=== PATIENT | male | born 1980 | race Caucasian/White ===

== ENCOUNTER 2019-06-27 11:28 | Emergency (ER) | payer OTHER, SELFPAY ==
[2019-06-27 11:34] VITALS: BP 140/90; PULSE 88; RESP 16; TEMP 36.5; O2SAT 100
--- NOTE | 2019-06-27 11:57 | ED.GENADUL_ITS ---
Discharge Plan Disposition Patient Disposition: HOME Condition: Stable Discharge Details Chief Complaint: FlankPain Clinical Impression: Right ureteral stone, Cholelithiasis Primary Care Provider: Jeny Nicole ED Provider: Perico Flores Home Meds and New Rx's Prescriptions: New oxycodone 5 mg tablet 5 mg PO Q6H PRN (Reason: pain) Qty: 4 RF: 0 tamsulosin [Flomax] 0.4 mg capsule 0.4 mg PO QHS Qty: 14 RF: 0 Continued sumatriptan succinate 100 mg Tablet 100 mg PO PRNRF: 0 tramadol 50 mg Tablet 100 mg PO BID RF: 0 naproxen 500 mg Tablet 500 mg PO PRNRF: 0 atorvastatin [Lipitor] 20 mg Tablet 20 mg PO DAILY RF: 0 testosterone [AndroGel] 1 % (50 mg/5 gram) Gel In Packet RF: 0 Discharge Instructions Instructions: Kidney Stones (ED), How to Strain Your Urine (ED) Additional Instructions: It is recommended that you take your naproxen 500 mg twice daily and use the prescribed narcotic as needed for any further discomfort. Return immediately to the emergency department for any fever chills, significant worsening or change in your pain, or inability to urinate. Otherwise follow-up with the [facility] or [facility] you may follow-up with our urologist. Given that you did have stones noted in your gallbladder it is also recommended that you follow-up with general surgery for consultation. Referrals: [facility] [Outside] (As needed for referral to urology or general surgery) Tristan Hummel MD [ [facility] STAFF PHYSICIAN] - 2 weeks (For follow-up of your kidney stones) Chantal Zuniga DO [OSTEOPATHIC DOCTOR] - (For follow-up in regards to your gallbladder stones) Discharge Data Discharge Date/Time-TO BE ENTERED AT DEPARTURE: 06/27/19 14:21 Medical Decision Making Patient presenting to the emergency department for chief complaint of right flank pain. Patient states just prior to arrival he was riding the car and noted some significant and severe right flank pain. Patient denies any injury or trauma, heavy lifting, bending or twisting type motions. Patient has significant history of renal stones which have required both stenting and operative removal. Patient states that pain and discomfort feels similar to previous episodes of kidney stones. He does also state that he has gallstones but they have been stable and has not had his gallbladder removed yet. He does report nausea and 2 episodes of vomiting prior to arrival. Physical exam shows nonspecific paraspinal tenderness to the right paraspinal tissue, no abdominal findings, no cardiac or respiratory findings, no CVA tenderness but of notation after performing right CVA testing patient did state some increase in discomfort lower on the flank and increase in nausea. Given patient's history plan to check labs, urinalysis, and renal colic CT. Pending results patient given Zofran and hydromorphone. Review of labs show a mild leukopenia but no anemia, urinalysis shows elevated specific gravity, trace proteins, moderate amount of blood, microscopic urine also shows significant amount of RBCs and calcium oxalate. Review of CMP shows slightly increased BUN, normal LFTs, otherwise nondiagnostic. Review of CT imaging and radiologist interpretation shows 2 mm distal right ureteral stone about the pelvic brim with possible mild upstream hydroureter. No hydronephrosis. 2. Bilateral medullary nephrocalcinosis. 3. Cholelithiasis without cholecystitis. Reassessed patient and patient states improvement of symptoms. [facility] but also was given local urology phone numbers. Patient has no abdominal pain so I agree with the cholelithiasis without cholecystitis but did have significant discussion with patient about needing to consult general surgery for consideration of cholecystectomy before his problems worsen. Drug database was queried and no current medications were noted. Patient does state that he has previously had tramadol in the past for chronic back pain. At this time I am not concerned for any drug abuse so patient given limited prescription of oxycodone and otherwise recommended to take naproxen 500 mg twice daily which he is already prescribed. Patient was also given prescription of Flomax. Return precautions were discussed. After discussion of diagnosis and plan of care patient has no further needs, questions, or concerns and states clear understanding to return to the emergency department for any worsening symptoms. HPI General Mode of arrival: ambulatory . Date/Time Provider Initiated Documentation: 06/27/19 11:32 . Limitations to Documentation: no limitations . Information obtained by: patient and RN notes reviewed . History of Present Illness 38 year old M presents to the emergency department with the chief complaint of Right flank pain, described as moderate and similar to prior episodes, with intensity rated at 5. Quality is described as aching, and is localized to the right (flank). Patient started experiencing this hour(s) (1) and it has been constant. No relieving factors improve symptom(s), No exacerbating factors reported . Patient notes nausea/vomiting. Patient did receive the following treatments prior to arrival, none Related Data Home Medications Medication Instructions Recorded Confirmed atorvastatin [Lipitor] 20 mg PO DAILY 06/27/19 06/27/19 naproxen 500 mg PO PRN 06/27/19 oxycodone 5 mg PO Q6H PRN #4 tab 06/27/19 sumatriptan succinate 100 mg PO PRN 06/27/19 tamsulosin [Flomax] 0.4 mg PO QHS #14 cap 06/27/19 testosterone [AndroGel] 06/27/19 tramadol 100 mg PO BID 06/27/19 06/27/19 Previous Rx's Medication Instructions Recorded oxycodone 5 mg PO Q6H PRN #4 tab 06/27/19 tamsulosin [Flomax] 0.4 mg PO QHS #14 cap 06/27/19 Allergies Allergy/AdvReac Type Severity Reaction Status Date / Time acetaminophen [From Midrin] Allergy Unverified 06/27/19 11:41 amoxicillin Allergy Unverified 06/27/19 11:41 dichloralphenazone Allergy Unverified 06/27/19 11:41 [From Midrin] isometheptene [From Midrin] Allergy Unverified 06/27/19 11:41 ketorolac [From Toradol] Allergy Unverified 06/27/19 11:41 latex Allergy Unverified 06/27/19 11:41 bees Allergy Uncoded 06/27/19 12:25 General Stated Complaint: FlankPain TRINA: 3 Review of Systems Constitutional Constitutional: Denies chills, Denies fever(s) and Reports poor appetite Cardiovascular Cardiovascular: Denies chest pain and Denies dyspnea Respiratory Respiratory: Denies cough and Denies dyspnea Gastrointestinal Gastrointestinal: Reports as per HPI, Denies abdominal pain, Denies melena, Denies change in bowel habits, Denies constipation, Denies diarrhea, Reports nausea and Reports vomiting Genitourinary Genitourinary: Denies hematuria, Denies difficulty urinating, Denies dysuria, Reports flank pain and Denies urinary frequency Integumentary/Breasts Skin/Breast: Denies rash PFSH Social History Smoking/Tobacco Use Status: Never Alcohol Intake: never Substance use type: does not use Exam Const General: cooperative Orientation: alert, awake and oriented x3 Resp Effort & Inspection: normal respiratory effort and able to speak in complete sentences Auscultation: clear to auscultation bilaterally Cardio Rate: regular rate Rhythm: regular rhythm Heart Sounds: S1 normal and S2 normal GI Inspection: normal to inspection Palpation: soft, no hepatosplenomegaly, not firm, no guarding, no masses, no pulsatile masses, not rigid, no splenomegaly and nontender Auscultation: normal bowel sounds Back/Spine/Pelvis Back: no CVA tenderness Thoracic/Lumbar Spine: thoraco-lumbar ROM normal, paraspinal tenderness (Right paraspinal tissue muscle and fatty tissue without any other specific ), No thoracic spinal tenderness and No lumbar spinal tenderness Neuro General: alert, awake, oriented x3, gait normal and moves all extremities Course Vital Signs Vital signs: Vital Signs Temperature 36.5 C 06/27/19 11:34 Pulse 88 06/27/19 11:34 Respiratory Rate 16 06/27/19 11:34 Blood Pressure 140/90 06/27/19 11:34 Pulse Oximetry 100 06/27/19 11:34 Temperature 36.5 C 06/27/19 11:34 Temperature Source Skin 06/27/19 11:34 Pulse 88 06/27/19 11:34 Respiratory Rate 16 06/27/19 11:34 Respiratory Effort Non-Labored 06/27/19 11:34 Blood Pressure 140/90 06/27/19 11:34 Blood Pressure Position Sitting 06/27/19 11:34 Pulse Oximetry 100 06/27/19 11:34 Oxygen Delivery Method Room Air 06/27/19 11:34 Oxygen Flow Rate 0 06/27/19 11:34 Pain Level 6 06/27/19 11:34
[2019-06-27] MEDS: Normal Saline 1,000 ML 1000 ML IV (12:01)
[2019-06-27] MEDS: Ondansetron 4 MG/2 ML VIAL IVP (12:02)
[2019-06-27] MEDS: HYDROmorphone 2 MG/ML VIAL 0.5 MG IVP ×2 (12:03→12:25)
[2019-06-27 12:20] VITALS: BP 125/68; PULSE 80; RESP 15; O2SAT 97
[2019-06-27 12:20] LABS: Abs Immature Grans 0.01 k/cumm (0.0-0.09); Absolute Basophil Count 0.02 k/cumm (0.0-0.2); Absolute Eosinophil Count 0.17 k/cumm (0.0-0.7); Absolute Lymphocyte Count 1.47 k/cumm (1.2-3.4); Absolute Neutrophil Count 2.43 k/cumm (1.2-6.7); Basophils % 0.5; HCT 39.9 % (40.0-50.0); HGB 13.5 g/dL (13.5-17.5); Immature Grans % 0.2; Lymphocytes % 34.2; Mean Corp. HGB Concentration 33.8 g/dL (32.0-36.0); Mean Corpuscular Hemoglobin 30.5 pg (27.0-33.0); Mean Corpuscular Volume 90.3 fL (80-95); Mean Platelet Volume 9.8 fL (8.0-11.0); Monocytes % 4.7; Neutrophils % 56.4; Platelet Count 274 x1000/uL (130-400); RBC 4.42 m/cumm (4.50-6.00); RBC Distribution Width 13.1 % (11.8-14.1)
[2019-06-27 12:21] LABS: Bilirubin Negative (Negative); Blood Moderate (Negative); Clarity Clear (Clear); Glucose Negative (Negative); Ketones Negative (Negative); Leukocyte Esterase Negative (Negative); Nitrite Negative (Negative); Specific Gravity >= 1.030 (1.005-1.025); Urobilinogen 0.2 EU/dL (Up TO 0.2); pH 5.5 (5-8)
[2019-06-27 12:29] LABS: ALT 37 U/L (16-63); AST 22 U/L (15-37); Albumin 4.4 g/dL (3.4-5.0); Alkaline Phosphatase 75 U/L (46-116); Anion Gap 10.8 mmol/L (3-11); BUN 21 mg/dL (7-18); Bilirubin, Total 0.6 mg/dL (0.2-1.0); CO2 27.2 mmol/L (21.0-32.0); CREATININE 0.95 mg/dL (0.70-1.30); Calcium 8.9 mg/dL (8.5-10.1); Chloride 107 mmol/L (98-107); Glucose 130 mg/dL (70-100); Potassium 3.6 mmol/L (3.5-5.1); Sodium 145 mmol/L (136-145); Total Protein 7.8 g/dL (6.4-8.2)
--- NOTE | 2019-06-27 12:29 | DI.CT_ITS ---
EXAM: CT RENAL COLIC WO CLINICAL HISTORY: right flank pain TECHNIQUE: CT examination of the abdomen and pelvis was performed without contrast administration. COMPARISON: No exams were available for comparison FINDINGS: Visualized lung bases are clear. Visualized portions of the liver appear intact as does the spleen. Note is made cholelithiasis. No gallbladder wall thickening or pericholecystic fluid. No biliary di latation. Unremarkable appearance of pancreas. Normal diameter of abdominal aorta noted. No signif icant abdominal wall hernia seen. No significant abdominal or pelvic adenopathy. Appendix is normal . No evidence of bowel obstruction. Adrenals are normal bilaterally. Question very faint increased radiodensity renal pyramids bilateral ly, nephrocalcinosis not excluded. There is mild right hydronephrosis and hydroureter to the level of the mid to distal ureter where the re is a 2 millimeter in diameter stone presumably causing low-grade obstruction. No additional urete ral or renal calcification seen. Urinary bladder nearly empty and cannot be evaluated. IMPRESSION: Low-grade right ureteral obstruction secondary to 2 millimeter stone in the distal 3rd of the right u reter. Question very faint medullary nephrocalcinosis. Gallstones noted.
[2019-06-27 12:31] LABS: RBC 20-50 (0-2); WBC 0-2 HPF (0-5)
[2019-06-27 12:32] LABS: Bacteria Few HPF (Negative); Crystals Few Calcium Oxalate HPF (Negative); Epithelial Cells Moderate HPF (Negative)
[2019-06-27 12:33] LABS: C & S Indicated? No/Sq. Contamination; Casts Negative LPF (Negative); Mucus Heavy (Negative)
[2019-06-27] MEDS: HYDROmorphone 2 MG/ML VIAL 1 MG IVP (12:45)
--- NOTE | 2019-06-27 13:43 | DI.VRAD_ITS ---
PROCEDURE INFORMATION: Exam: CT Abdomen And Pelvis Without Contrast Exam date and time: 06/27/2019 12:24 PM Clinical history: 38 years old, male; Other: Right flank pain TECHNIQUE: Imaging protocol: Computed tomography of the abdomen and pelvis without contrast. Radiation optimization: All CT scans at this facility use at least one of these dose optimization techniques: automated exposure control; mA and/or kV adjustment per patient size (includes targeted exams where dose is matched to clinical indication); or iterative reconstruction. COMPARISON: No relevant prior studies available. FINDINGS: Liver: Unremarkable. No mass. Gallbladder and bile ducts: Multiple gallbladder stones. No evidence of cholecystitis. Pancreas: Unremarkable. No ductal dilation. Spleen: Unremarkable. No splenomegaly. Adrenals: Unremarkable. No mass. Kidneys and ureters: 2 mm distal right ureteral stone about the pelvic brim with possibly mild upstream hydroureter. No evidence of hydronephrosis. Bilateral subtle hyperdensity in the medullary appearance which is likely indicative of medullary nephrocalcinosis. Stomach and bowel: Unremarkable. No obstruction. No mucosal thickening. Appendix: No evidence of appendicitis. Intraperitoneal space: Unremarkable. No free air. No significant fluid collection. Vasculature: Unremarkable. No abdominal aortic aneurysm. Lymph nodes: Unremarkable. No enlarged lymph nodes. Bladder: Unremarkable as visualized. Reproductive: Coarse calcifications within the prostate gland. Bones/joints: No acute or concerning osseous abnormality. Soft tissues: Unremarkable. IMPRESSION: 1. 2 mm distal right ureteral stone about the pelvic brim with possible mild upstream hydroureter. No hydronephrosis. 2. Bilateral medullary nephrocalcinosis. 3. Cholelithiasis without cholecystitis. Dictated and Authenticated by: Gadiel eRynolds MD. Ordering:GRETEL River MD
[2019-06-27 14:02] VITALS: BP 111/77; PULSE 84; RESP 15; TEMP 36.7; O2SAT 99
[2019-06-27 14:24] VITALS: BP 111/77; PULSE 84; RESP 15; TEMP 36.7; O2SAT 99
== END 2019-06-27 14:21 | disposition home or self-care (01) ==
PROVIDERS: Emergency Provider Nurse Practitioner Family; PCP Occupational Therapist
DX: N20.1 Calculus of ureter (principal); K80.20 Calculus of gallbladder without cholecystitis without obstruction
CPT/HCPCS: 80053; 96361; 96374; 96375; 96376; 99284; 74176; 81003; 81015; 85025; J2405